=== PATIENT | male | born 1955 | race Caucasian/White ===

== ENCOUNTER 2021-10-12 09:18 | Day surgery (SDC) | payer MEDICARE ==
[~2021-10-12 09:18] MED LIST: Bupivacaine 0.5% 50 ML MDV ONE; Lidocaine 1% with EPINEPHrine 1:100,000 50 ML MDV ONE; Lidocaine 2% Jelly 30 ML Tube ONE
[2021-10-12] MEDS ORDERED: ceFAZolin 2 GM in Premix Bag 1 BAG IV ONE (10:00)
[2021-10-12] MEDS ORDERED: Sodium Chloride 0.9% 1,000 ML IV SCH (10:00)
[2021-10-12] MEDS ORDERED: Propofol 200 MG/20 ML SDV ONE ×2 (10:00→10:06)
[2021-10-12] MEDS ORDERED: Midazolam 1 MG/ML 2 ML SDV ONE (10:06)
[2021-10-12] MEDS ORDERED: fentaNYL 100 MCG/2 ML SDV ONE (10:06)
[2021-10-12] MEDS ORDERED: Bupivacaine 0.5% 30 ML SDV ONE (10:39)
[2021-10-12] MEDS ORDERED: Bacitracin Oint 1 GM U/D Packet ONE ×3 (11:14→11:46)
[2021-10-12] MEDS ORDERED: Mineral Oil 10 ML Bottle ONE (11:19)
== END 2021-10-12 13:34 | disposition home or self-care (01) ==
LOC: JP.SDS 09:18
PROVIDERS: ATTEND Surgery
DX: S61.231A Puncture wound without foreign body of left index finger without damage to nail, initial encounter (principal); S67.191A Crushing injury of left index finger, initial encounter; F17.200 Nicotine dependence, unspecified, uncomplicated; X58.XXXA Exposure to other specified factors, initial encounter
CPT/HCPCS: 87070; 87075; 87077; 87186; 87205; J0690; J2250; J2704; J3010; J3490; J7030